=== PATIENT | female | born 1985 | race Caucasian/White ===

== ENCOUNTER 2018-01-03 11:28 | Emergency (ER) | payer OTHER ==
[~2018-01-03] VITALS: Ht 160 cm; Wt 120.9 kg
[2018-01-03] MEDS ORDERED: PEN-VEE K,VEET500 MG PO (13:22)
[2018-01-03] MEDS ORDERED: ULTRAM50 MG PO (13:22)
[2018-01-03 13:35] VITALS: BP 149/95
[2018-01-03] MEDS ORDERED: NORCO 5/3251 TABLET PO (18:14)
== END 2018-01-03 13:37 | disposition home or self-care (01) ==
LOC: EME 11:28
DX: K08.89 Other specified disorders of teeth and supporting structures (principal); E11.9 Type 2 diabetes mellitus without complications
CPT/HCPCS: 99281; 99283

== ENCOUNTER 2018-01-05 08:31 | Emergency (ER) | payer OTHER ==
[~2018-01-05] VITALS: Ht 160 cm; Wt 118.0 kg
[~2018-01-05 08:31] MED LIST: NORCO 5/3251 TABLET PO; PEN-VEE K,VEET500 MG PO; ULTRAM50 MG PO
[2018-01-05] MEDS ORDERED: MOTRIN800 MG PO (09:03)
[2018-01-05] MEDS ORDERED: NORCO 5/3251 TABLET PO (09:03)
[2018-01-05 09:19] VITALS: BP 141/88
== END 2018-01-05 09:20 | disposition home or self-care (01) ==
LOC: EME 08:31
DX: K02.9 Dental caries, unspecified (principal); E11.9 Type 2 diabetes mellitus without complications
CPT/HCPCS: 99281; 99283

== ENCOUNTER 2018-04-14 20:38 | Emergency (ER) | payer OTHER ==
[~2018-04-14] VITALS: Ht 160 cm; Wt 133.3 kg
[~2018-04-14 20:38] MED LIST changes: +MOTRIN800 MG PO
[2018-04-14] MEDS ORDERED: METFORMIN HCL1000 MG PO (21:28)
[2018-04-14] MEDS ORDERED: LEVOTHYROXINE150 MCG PO (21:28)
[2018-04-14] MEDS ORDERED: MOTRIN600 MG PO (22:42)
[2018-04-14 23:20] VITALS: BP 126/97
== END 2018-04-14 23:21 | disposition home or self-care (01) ==
LOC: EME 20:38
DX: M79.672 Pain in left foot (principal); E11.9 Type 2 diabetes mellitus without complications; Z91.013 Allergy to seafood
CPT/HCPCS: 73630; 99281; 99284